=== PATIENT | male | born 1975 | race Two or more races ===

== ENCOUNTER 2018-02-28 09:40 | Observation (INO) | payer OTHER ==
[2018-02-28] MEDS ORDERED: NS 1,000 ML IV ONE (09:42)
[2018-02-28] MEDS ORDERED: ceFAZolin 2 GM/DEXTROSE 100 ML IV ONE (09:42)
[2018-02-28] MEDS ORDERED: BACITRACIN IRRIGATION/NS 50,000 UNITS/1,000 ML BTL IRR ONE (09:42)
[2018-02-28] MEDS ORDERED: diphenhydrAMINE 25 MG CAP PO ONE (09:42)
[2018-02-28] MEDS ORDERED: DIAZEPAM 5 MG TAB PO ONE (09:42)
--- NOTE | 2018-02-28 10:26 | CPEKG ---
Heart Rate: 81 RR Interval: 741 P-R Interval: 256 QRSD Interval: 94 QT Interval: 424 QTC Interval: 493 P [employer]: 60 QRS [employer]: 21 T Wave [employer]: 92 EKG Severity - ABNORMAL ECG - EKG Impression: SINUS RHYTHM EKG Impression: FIRST DEGREE AV BLOCK EKG Impression: PROBABLE LEFT ATRIAL ABNORMALITY EKG Impression: LVH WITH SECONDARY REPOLARIZATION ABNORMALITY EKG Impression: ST DEPRESSION, CONSIDER ISCHEMIA, ANT-LAT LDS EKG Impression: BORDERLINE PROLONGED QT INTERVAL Electronically Signed By: Tristin Gill 28-Feb-2018 16:26:34
[2018-02-28 10:35] LABS: PLATELET COUNT 149 10^3/uL (150-400)
[2018-02-28 10:54] LABS: INR 1.03 (0.83-1.16); PROTIME(PATIENT) 13.7 SEC (12.0-15.0)
--- NOTE | 2018-02-28 10:58 | PDHPUP ---
History & Physical Update H&P update statement: This history and physical update is based on an assessment of the patient which was completed after admission or registration (within 24 hours), but prior to the surgery/procedure. H&P update: H&P reviewed & patient examined, no change in patient's condition since H&P completed
--- NOTE | 2018-02-28 10:59 | PDPROPOC ---
Sedation Plan of Care Sedation Plan of Care: vital signs stable, mental status noted, patient educated of risks, benefits, alternatives, patient can tolerate sedation ASA Classification: ASA 3 Planned drugs: fentanyl, midazolam Mallampati Score: Class 3 Mallampati Reference Image: Patient passed 3-3-2 rule?: Yes
[2018-02-28] MEDS ORDERED: fentaNYL 100 MCG/2 ML INJ ONE (11:22)
[2018-02-28] MEDS ORDERED: BUPIVACAINE 0.5% 30 ML SDV ONE ×2 (11:22→14:34)
[2018-02-28] MEDS ORDERED: MIDAZOLAM 2 MG/2 ML VIAL ONE ×2 (11:22→11:41)
[2018-02-28] MEDS ORDERED: LIDOCAINE 1% 300 MG/30 ML SDV ONE ×2 (11:22→14:34)
[2018-02-28] MEDS ORDERED: LIDO/EPI 1% **for epidural** 30 ML SDV ONE (11:22)
[2018-02-28] MEDS: METOPROLOL TARTRATE 50 MG TAB PO SCH ×2 (16:09→23:19)
--- NOTE | 2018-02-28 17:57 | EPPROC ---
Electrophysiology Procedure Note: PROCEDURE PERFORMED: Implantation of an A/V Pacemaker Fluoroscopy INDICATION: This is a 42 yr old with cardiomyopathy with EF 23% with NYHA II despite optimal medical management for 6 months. In view of this it was decided to implant a single chamber ICD for primary prevention. PROCEDURE NOTE: Patient presented to the cardiac catheterization laboratory in a fasting, post absorptive state. Cardiac research laboratory specialist nurse administered moderate sedation. The left infraclavicular area was prepped and draped in the usual sterile fashion. Lidocaine plus bupivacaine was used for local anesthesia. Using a combination of blunt and sharp dissection and electrocautery, the dissection was carried down to the prepectoral fascia. All bleeding was controlled with electrocautery. Fluoroscopy was utilized during the entire procedure for venous access and placement of the leads. Using the usual technique, left cephalic vein was accessed and a glidewire was placed. Through this initially a 9F sheath was passed. Placement of the guidewire into the venous system was confirmed by low-pressure blood return and also by visualizing the guidewires advancing into the inferior vena cava. A purse string suture was applied around the guidewires. An active fixation ventricular lead was advanced into the right ventricular apex and screwed in place. The peel away sheaths were removed. Pacing thresholds, sensing parameters and lead impedances were measured. There was no diaphragmatic stimulation at maximum output. The lead was sutured to the prepectoral fascia with 3 nonabsorbable sutures each. The pocket was created and it was flushed using antibiotic solution. It was inspected for any bleeding. The leads were attached to the pacemaker securely. The pacemaker was inserted into the pocket and secured in place with a nonabsorbable suture. Fluoroscopy was performed in RABAGO and DANISH planes to verify right-sided placement of the leads. Also fluoroscopy of the pacemaker pocket was performed. The pacemaker pocket was closed in 3 layers with absorbable vicryl sutures. Steristrips were placed. Appropriate dressing was applied. The patient left the cardiac catheterization laboratory in stable condition. Serial Numbers: Device: [employer]ura VR [id number] Ventricular Lead: [employer] SN [id number] Stimulation Thresholds & Impedance Measurements: Ventricular Lead 17.7mV, 0.5@0.5ms, 767Ohms [place] Pacing Parameters Pacing mode: VVI Lower rate: 40
[2018-02-28] MEDS ORDERED: ACETAMINOPHEN 325 MG TAB PO PRN (18:48)
[2018-02-28] MEDS ORDERED: NS BOLUS 500 ML (Wide open) IV ONE (19:00)
[2018-02-28] MEDS ORDERED: ASPIRIN 81 MG CHEWABLE TAB PO SCH (21:00)
[2018-03-01 04:35] LABS: PLATELET COUNT 128 10^3/uL (150-400)
[2018-03-01] MEDS: METOPROLOL TARTRATE 50 MG TAB PO SCH (08:18)
[2018-03-01 08:20] VITALS: BP 150/98
[2018-03-01] MEDS ORDERED: FUROSEMIDE 40 MG TAB PO SCH (09:00)
[2018-03-01] MEDS ORDERED: SPIRONOLACTONE 25 MG TAB PO SCH (09:00)
[2018-03-01] MEDS ORDERED: MAGNESIUM OXIDE 400 MG TAB PO SCH (09:00)
[2018-03-01] MEDS ORDERED: POTASSIUM CL 20 MEQ TAB PO SCH (09:00)
--- NOTE | 2018-03-01 10:13 | GDS ---
[f rep st] DISCHARGE SUMMARY DISCHARGE DIAGNOSES: 1. Status post single-chamber [employer] ICD for primary prevention. 2. Nonischemic cardiomyopathy with an ejection fraction of 8%, currently up to 23%. 3. Chronic systolic congestive heart failure. 4. Hypertension. 5. Pulmonary hypertension. HOSPITAL COURSE: For a detailed H and P, please see prior dictation. Briefly, the patient is a 42-y ear-old male with a history of chronic systolic heart failure and nonischemic cardiomyopathy with an ejection fraction as low as 8%. His most recent echocardiogram showed an improvement in his EF to 23 % on maximally tolerated medical therapy. Due to his persistent cardiomyopathy, the decision was mad e to proceed with a single-chamber ICD. This was performed on 02/28, at which time he had a [employer] device placed. The procedure was uncomplicated. The following day, he denied any significant disco mfort over the ICD site. His device was interrogated and working properly. He was monitored on tele metry and is intermittently paced. His chest x-ray the day of discharge was negative for pneumothora x, and the leads have good placement. PHYSICAL EXAMINATION: GENERAL: Patient appears in no acute distress. VITALS: Blood pressure 150/9 8, heart rate 89, oxygen saturation of 95% on room air. Afebrile. LUNGS: Clear to auscultation. N o wheezes, rhonchi, or crackles auscultated. CARDIAC: Regular rate and rhythm, without any rubs or gallops. CHEST WALL: His ICD site is clean, intact, without any evidence of infection or hematoma. He does have a dressing in place. EXTREMITIES: No evidence of edema, with positive pulses. DISCHARGE MEDICATIONS: His medications are unchanged. He will continue aspirin 81 mg daily, digoxin 250 mcg daily, Lasix 40 mg daily, losartan 50 mg daily, mag oxide 250 mg daily, metoprolol 50 mg t.i .d., potassium 20 mEq daily, spironolactone 25 mg daily, Tylenol p.r.n. for pain. PLAN: The patient is currently stable and ready for discharge home. He has been given ICD precautio ns. He is scheduled for a wound check and pacer interrogation on March 07 at 2:30. Greater than 30 minutes was spent coordinating the patient's care today. /[id number]/MODL
[2018-03-01] MEDS ORDERED: DIGOXIN 250 MCG TAB PO SCH (12:00)
[2018-03-01] MEDS ORDERED: LOSARTAN POTASSIUM 50 MG TAB PO SCH (12:00)
== END 2018-03-01 11:15 | disposition home or self-care (01) ==
LOC: FCATH 09:40 → F2W 12:15
PROVIDERS: ADMIT Internal Medicine Cardiovascular Disease; ATTEND Internal Medicine Cardiovascular Disease
PROC: 0JH604Z Insertion of Pacemaker, Single Chamber into Chest Subcutaneous Tissue and Fascia, Open Approach (ICD-10-PCS; principal; 2018-02-28)
PROC: B5191ZA Fluoroscopy of Inferior Vena Cava using Low Osmolar Contrast, Guidance (ICD-10-PCS; principal; 2018-02-28)
PROC: 02HK3JZ Insertion of Pacemaker Lead into Right Ventricle, Percutaneous Approach (ICD-10-PCS; principal; 2018-02-28)
DX: I42.9 Cardiomyopathy, unspecified (principal); I50.22 Chronic systolic (congestive) heart failure; I11.0 Hypertensive heart disease with heart failure; I27.29 Other secondary pulmonary hypertension
CPT/HCPCS: C1722; C1769; C1777; G0378; J0690; J2250; J3010